=== PATIENT | female | born 1970 | race Caucasian/White ===

== ENCOUNTER → 2024-04-26 14:24 | Outpatient (REF) | payer OTHER, SELFPAY | LOC: WDC 14:24 | PROVIDERS: ATTENDING PHYSICIAN Advanced Practice Midwife; FAMILY PHYSICIAN Family Medicine | DX: Z12.31 Encounter for screening mammogram for malignant neoplasm of breast (principal) | CPT/HCPCS: 77063; 77067 ==

== ENCOUNTER → 2024-09-29 10:21 | Outpatient (REF) | payer OTHER, SELFPAY | LOC: HWRAD 10:21 | PROVIDERS: ATTENDING PHYSICIAN Nurse Practitioner Family; FAMILY PHYSICIAN Family Medicine | DX: R14.0 Abdominal distension (gaseous) (principal) | CPT/HCPCS: 76830; 76856 ==

== ENCOUNTER 2024-12-30 06:29 | Day surgery (SDC) | payer OTHER, SELFPAY | END 2024-12-30 09:42 | disposition home or self-care (01) | LOC: GI 06:29 | PROVIDERS: ATTENDING PHYSICIAN Internal Medicine Gastroenterology | DX: Z12.11 Encounter for screening for malignant neoplasm of colon (principal); K57.30 Diverticulosis of large intestine without perforation or abscess without bleeding; K64.8 Other hemorrhoids; Z86.0100 Personal history of colon polyps, unspecified; Z83.719 Family history of colon polyps, unspecified | CPT/HCPCS: G0105 ==

== ENCOUNTER 2025-01-11 09:51 | Emergency (ER) | payer OTHER, SELFPAY ==
[2025-01-11 09:53] VITALS: BP 117/85
[2025-01-11 10:58] VITALS: BMI 31.6
--- NOTE | 2025-01-11 11:11 | ED.GENMED ---
History of Present Illness
General
Chief Complaint: Abdominal Symptoms
Source: patient
Exam Limitations: none
Time Seen by Provider: 01/11/25 10:40
History of Present Illness
History of Present Illness:
54yoF with a history of hypothyroidism, GERD, and anxiety presenting for evaluation of diarrhea. Symptoms began 2 days ago. She reports having leakage of mucousy stools from her rectum. She is also experiencing nausea without vomiting. She has
some abdominal discomfort but denies any overt pain. She also reports a weird taste in her mouth. No fevers or hematochezia. Only previous abdominal surgery is a hernia repair many years ago. She had a colonoscopy on 12/30/2024 which was normal.
Patient does admit to going out to eat 2 days ago for Easter. She denies any sick contacts, recent travel, or recent antibiotics.
Past History
Past History
ED Past Medical History: Hypothyroidism, Psychiatric and Other (History of hereditary exostosis, anxiety, PCOS)
ED Past Surgical History: Other (Multiple bone tumors removed, peripheral bypass of the left lower extremity, hernia repair, wisdom teeth extraction); Negative Cardiac
Social History
Tobacco: Non-smoker
Alcohol: Occasional
Drug: None
Personal:
Living: with family
Employment: Employed
Family History
Family History: CAD
Phy Exam
General Physical Exam
General Presentation: well appearing and no apparent distress
General age: appears stated age
General Skin: warm and dry
General Habitus: normal
General Mental: alert
ENT Exam
ENT Exam: normocephalic
Pulmonary Exam
Pulmonary Exam: no respiratory distress
Gastrointestinal Exam
Gastrointestinal Exam: soft, non distended and other (Mild R sided abdominal tenderness. Abdomen soft, non-distended. No rebound or guarding.)
Neurological Exam
Neurological Exam: alert
Percy Coma Scale
Eye Opening: Spontaneous
Verbal Response: Oriented
Motor Response: Obeys Commands
GCS Total Score: 15
Skin Exam
Skin Exam: normal color and warm/dry
Psychiatric Exam
Psychiatric Exam: normal mood/affect
Course
Orders/Labs/Results
Orders:
Orders
01/11/25 11:08
0.9% Sodium Chloride 1000 ml [Nss] 1,000 ml IV BOLUS
01/11/25 11:09
Diphenhydramine [Benadryl] 50 mg IV NOW STA
Hydrocortisone Sod Succinate [Solu-Cortef] 200 mg IV NOW STA
01/11/25 11:10
CT Abd/pelvis W Iv Cont Urgent
Comment:
Reason For Exam: R sided abd pain, diarrhea
Ondansetron Injectable [Zofran] 4 mg IV NOW STA
01/11/25 11:22
Complete Blood Count/With Diff Urgent
01/11/25 12:08
Basic Metabolic Panel Urgent
Lipase Urgent
01/11/25 12:54
LFT [Rnlox-Ocdz-Xrnnyuc] Urgent
Potassium Urgent
Abnormal Lab Results
01/11/25 01/11/25
11:22 12:08
Plt Count 419 H 10^3/uL
(130-400)
Abs Immat Gran (auto) 0.1 H 10^3/uL
(0-0.05)
Absolute Neuts (auto) 7.0 H 10^3/uL
(1.4-6.5)
Lymphocytes % 17.6 L %
(20.5-51.1)
Chloride 109 H mmol/L
(98-107)
Glucose 102 H mg/dl
(70-99)
01/11/25 11:22
01/11/25 12:54
Vital Signs
Initial and Last Documented VS:
Initial Vital Signs
Temp Pulse Resp BP Pulse Ox
98.1 F 93 17 117/85 99
01/11/25 09:53 01/11/25 09:53 01/11/25 09:53 01/11/25 09:53 01/11/25 09:53
Last Documented Vital Signs
Temp Pulse Resp BP Pulse Ox
98.1 F 89 20 120/80 98
01/11/25 14:30 01/11/25 14:30 01/11/25 14:30 01/11/25 14:30 01/11/25 14:30
MDM/Problems Addressed
Differential Diagnosis Includes:
54yoF here with nausea, diarrhea, and abd discomfort x 2 days. Reports mucous leakage from rectum. No fevers. VSS. She is well appearing in no distress. No signs of peritonitis on abdominal exam. Differential diagnosis includes but is not limited
to: gastroenteritis, food poisoning, viral illness, colitis, dehydration
Initial ED plan: Check abdominal labs, stool studies, and CT abdomen. IV Zofran and fluid bolus. IV Benadryl and hydrocortisone ordered given hx of contrast allergy.
*Critical Care Note
Total Time (30-74mins, 75-104mins- exclusive of procedures): Not Applicable
Update Note
Update Note:
Labs unremarkable including normal white count, electrolytes, renal function. CT is negative for acute findings. There is a tiny bubble of air in the bladder seen although she has no urinary symptoms. Patient unable to provide stool sample so doubt
C.diff. No indication for admission. Prescription given for Zofran and supportive care discussed. Advised f/u with PCP and ED return precautions reviewed. Patient in agreement with plan and was discharged in stable condition.
ED Attending Note
-
Portions of this chart may have been created with voice recognition software.� Occasional wrong word or��sound alike� substitutions may have occurred due to the inherent limitations of voice recognition software.
Discharge Plan
Departure
Patient Disposition: Home (Routine Discharge)
Date of Disposition: 01/11/25
Time of Disposition: 14:10
Patient with high blood pressure during this ER visit?: No
Discharge Problem:
Acute diarrhea, Nausea
Instructions: Diarrhea in teens and adults
Prescriptions:
New
ondansetron 4 mg tablet,disintegrating
4 mg PO Q6H PRN (Reason: nausea and vomiting) Qty: 20 0RF
No Action
escitalopram oxalate 20 MG tablet
10 mg PO DAILY
alprazolam 0.5 MG tablet
0.5 mg PO Q6HPRN PRN (Reason: anxiety)
levothyroxine 25 MCG capsule
25 mcg PO DAILY
promethazine 25 MG tablet
12.5 mg PO Q6HPRN PRN (Reason: vomiting/headache) Qty: 10 0RF
oxycodone-acetaminophen [Percocet] 5-325 mg tablet
1 tab PO Q4H PRN (Reason: Pain) Qty: 10 0RF
cyclobenzaprine 10 mg tablet
10 mg PO TID PRN (Reason: muscle spasm) Qty: 20 0RF
Referrals:
Stanley Webb DO [Family Provider] -
Stand Alone Forms: Return to Work
Activity Restrictions/Additional Instructions:
Take Zofran as needed for nausea. Drink plenty of fluids and eat a bland diet (bananas, rice, applesauce, toast).
Please follow-up with your family doctor. Return to the ER with any new or worsening symptoms including fevers or severe pain.
Interventions
Interventions:
*Risk Screen - Suicide Last Done: 01/11/25 09:55
*General Assessment Last Done: 01/11/25 09:55
*Neglect/Abuse Screening Last Done: 01/11/25 09:55
*ED- Fall Risk Assessment Last Done: 01/11/25 10:59
*ED COVID-19 Vaccine History Last Done: 01/11/25 09:55
*Nursing Disposition Last Done: 01/11/25 14:30
ZJ-Dhqbkc-Szqlqjcgwu Assessment Last Done: 01/11/25 10:59
Discharge Date and Time
Discharge Date/Time: 01/11/25 14:32
Print Language: MONGOLIAN
[2025-01-11] MEDS: ZOFRAN 4 MG IV (11:26)
[2025-01-11] MEDS: BENADRYL 50 MG IV (11:26)
[2025-01-11] MEDS: SOLU-CORTEF 200 MG IV (11:26)
[2025-01-11] MEDS: NSS 1000 IV (11:27)
[2025-01-11 11:43] LABS: % Basophils 0.6 % (0-2); % Eosinophils 2.6 % (0-6); % Immature Granulocytes 0.5 % (0-0.5); % Lymphocytes 17.6 % (20.5-51.1); % Neutrophils 72.7 % (42.2-75.2); Absolute Basophils 0.1 10^3/uL (0-0.2); Absolute Eosinophils 0.3 10^3/uL (0-0.7); Absolute Immature Granulocytes 0.1 10^3/uL (0-0.05); Absolute Lymphocytes 1.7 10^3/uL (1.2-3.4); Absolute Monocytes 0.6 10^3/uL (0.1-0.6); Hematocrit 41.8 % (37.0-47.0); Hemoglobin 14.2 g/dL (12.0-16.0); Mean Corpuscular Volume 85.5 fL (81.0-99.0); Mean Platelet Volume 9.5 fL (7.4-10.4); Nucleated Red Blood Cells % 0 %; Platelet Count 419 10^3/uL (130-400); Red Blood Cell Count 4.89 10^6/uL (4.20-5.40); Red Cell Dist. Width 13.8 % (11.5-14.5); White Blood Cell Count 9.6 10^3/uL (4.8-10.8)
[2025-01-11 12:32] LABS: Blood Urea Nitrogen 11 mg/dl (7-17); Calcium 8.7 mg/dl (8.4-10.2); Carbon Dioxide 27 mmol/L (22-30); Chloride 109 mmol/L (98-107); Estimated Creatinine Clearance 107 ml/min; Glucose 102 mg/dl (70-99); Lipase 77 U/L (23-300); Sodium 140 mmol/L (135-145); eGFR > 60.00
[2025-01-11 13:22] LABS: ALT (SGPT) 32 U/L (0-35); AST (SGOT) 29 U/L (14-36); Albumin 3.7 g/dl (3.5-5.0); Alkaline Phosphatase 82 U/L (38-126); Direct Bilirubin 0.3 mg/dl (0.0-0.4); Potassium 4.7 mmol/L (3.5-5.1); Total Bilirubin 0.8 mg/dl (0.2-1.3); Total Protein 6.3 g/dl (6.3-8.2)
[2025-01-11 14:30] VITALS: BP 120/80
== END 2025-01-11 14:32 | disposition home or self-care (01) ==
LOC: EMR 09:51
PROVIDERS: Physician Assistant; EMERGENCY PHYSICIAN Emergency Medicine; FAMILY PHYSICIAN Family Medicine
DX: R19.7 Diarrhea, unspecified (principal); R11.0 Nausea; E03.9 Hypothyroidism, unspecified; K21.9 Gastro-esophageal reflux disease without esophagitis; Z91.041 Radiographic dye allergy status
CPT/HCPCS: 96374; 96375; 96361; 99284; 74177; 80048; 80076; 83690; 84132; 85025; Q9967

== ENCOUNTER → 2025-03-15 14:29 | Outpatient (REF) | payer OTHER, SELFPAY | LOC: HWRAD 14:29 | PROVIDERS: ATTENDING PHYSICIAN Family Medicine | DX: E04.2 Nontoxic multinodular goiter (principal) | CPT/HCPCS: 76536 ==

== ENCOUNTER → 2025-09-19 12:14 | Outpatient (REF) | payer OTHER, SELFPAY | LOC: RAD 12:14 | PROVIDERS: ATTENDING PHYSICIAN Family Medicine; FAMILY PHYSICIAN Family Medicine | DX: J06.9 Acute upper respiratory infection, unspecified (principal) | CPT/HCPCS: 71046 ==